=== PATIENT | female | born 1970 | race Caucasian/White ===

== ENCOUNTER 2019-07-12 06:40 | Day surgery (SDC) | payer OTHER | END 2019-07-12 19:50 | disposition home or self-care (01) | LOC: CIR.AMB 06:40 | PROVIDERS: Plastic Surgery; Surgery | PROC: C71L1ZZ Planar Nuclear Medicine Imaging of Upper Chest Lymphatics using Technetium 99m (Tc-99m) (ICD-10-PCS; 2019-07-12) | PROC: 0HBV0ZZ Excision of Bilateral Breast, Open Approach (ICD-10-PCS; 2019-07-12) | PROC: 0HBT0ZZ Excision of Right Breast, Open Approach (ICD-10-PCS; principal; 2019-07-12 07:00) | PROC: 07B50ZZ Excision of Right Axillary Lymphatic, Open Approach (ICD-10-PCS; 2019-07-12 07:00) | DX: C50.411 Malignant neoplasm of upper-outer quadrant of right female breast (principal); N62 Hypertrophy of breast; Z41.1 Encounter for cosmetic surgery | CPT/HCPCS: 19301; 38525; 38792; 19318; 78195; A9541 ==

== ENCOUNTER 2020-10-02 06:00 | Day surgery (SDC) | payer OTHER ==
[~2020-10-02 06:00] MED LIST: TAMOXIFEN CITRA10 MG PO
== END 2020-10-02 22:09 | disposition home or self-care (01) ==
LOC: CIR.AMB 06:00
PROVIDERS: ATTEND Surgery
DX: N60.01 Solitary cyst of right breast (principal); Z20.822 Contact with and (suspected) exposure to COVID-19

== ENCOUNTER 2021-07-09 05:49 | Day surgery (SDC) | payer OTHER | END 2021-07-09 13:05 | disposition home or self-care (01) | LOC: CIR.AMB 05:49 | PROVIDERS: ATTEND Plastic Surgery | DX: N65.1 Disproportion of reconstructed breast (principal); Z90.11 Acquired absence of right breast and nipple; Z20.822 Contact with and (suspected) exposure to COVID-19 ==